=== PATIENT | male | born 1985 | race Asian ===

== ENCOUNTER 2018-06-16 11:37 | Emergency (ER) | payer OTHER ==
[~2018-06-16] VITALS: Ht 167.6 cm; Wt 77.3 kg
[2018-06-16 11:53] VITALS: BP 131/75
[2018-06-16] MEDS ORDERED: LIDOCAINE/PF 1% 2 ML VIAL IM ONE (12:15)
[2018-06-16] MEDS ORDERED: CefTRIAXone SODIUM 1 GM/VIAL IM ONE (12:15)
[2018-06-16] MEDS ORDERED: HYDROCODONE/ACETAMINOPHEN 5-325 MG TABLET PO ONE (12:15)
[2018-06-16] MEDS ORDERED: SULFAMETHOX/TRIMETH DS 800-160 MG/TABLET PO ONE (12:15)
== END 2018-06-16 13:45 | disposition home or self-care (01) ==
LOC: EMS 11:39
DX: L02.411 Cutaneous abscess of right axilla (principal); F12.90 Cannabis use, unspecified, uncomplicated
CPT/HCPCS: 10060; 96372; 99283; J0696; J3490

== ENCOUNTER 2018-06-18 10:19 | Emergency (ER) | payer OTHER ==
[~2018-06-18] VITALS: Ht 167.6 cm; Wt 77.3 kg
[2018-06-18] MEDS ORDERED: ANTIBIOTIC PO (10:58)
[2018-06-18 12:16] VITALS: BP 119/77
== END 2018-06-18 12:21 | disposition home or self-care (01) ==
LOC: EMS 10:19
DX: L02.413 Cutaneous abscess of right upper limb (principal); F12.90 Cannabis use, unspecified, uncomplicated

== ENCOUNTER 2018-06-20 08:14 | Emergency (ER) | payer OTHER ==
[~2018-06-20] VITALS: Ht 170.2 cm; Wt 72.7 kg
[~2018-06-20 08:14] MED LIST: ANTIBIOTIC PO
[2018-06-20 09:00] VITALS: BP 125/68
== END 2018-06-20 09:03 | disposition home or self-care (01) ==
LOC: EMS 08:14
DX: L03.113 Cellulitis of right upper limb (principal); F12.90 Cannabis use, unspecified, uncomplicated; Z48.00 Encounter for change or removal of nonsurgical wound dressing